=== PATIENT | male | born 1970 | race Caucasian/White ===

== ENCOUNTER 2021-10-04 00:10 | Emergency (ER) | payer OTHER, MEDICARE, MEDICAID, SELFPAY ==
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
[2021-10-04 00:07] VITALS: BP 104/63; PULSE 106; RESP 24; TEMP 36.8; O2SAT 99
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
== END 2021-10-04 01:54 | disposition left against medical advice (07) ==
PROVIDERS: Emergency Provider Emergency Medicine
DX: S50.12XA Contusion of left forearm, initial encounter (principal); M54.2 Cervicalgia; Z87.891 Personal history of nicotine dependence; V49.88XA Car occupant (driver) (passenger) injured in other specified transport accidents, initial encounter; Y92.524 Gas station as the place of occurrence of the external cause
CPT/HCPCS: 72125; 73090; 99284

== ENCOUNTER 2021-10-06 22:27 | Emergency (ER) | payer MEDICARE, MEDICAID, SELFPAY ==
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
--- NOTE | ~2021-10-06 | XR_ITS ---
XR chest 2V DATE: 10/07/2021 00:30 INDICATION: Cough. Episode of hemoptysis. TECHNIQUE: PA and lateral views COMPARISON: None FINDINGS: Mild bilateral hyperinflation. No pulmonary infiltrate or consolidation, pleural effusion o r pulmonary vascular congestion or pneumothorax. Normal heart size. No hilar or mediastinal enlargement. IMPRESSION: Mild bilateral hyperinflation; no active cardiopulmonary disease Reviewed, dictated and finalized at location A.
[2021-10-06 22:29] VITALS: BP 134/88; PULSE 114; RESP 18; TEMP 36.7; O2SAT 98
--- NOTE | 2021-10-06 22:43 | PC.NURSE ---
PATIENT DENIES BLOOD THINNERS AND HAS BEEN SOBER WITH ALCOHOL AND NARCOTICS FOR 22 YEARS
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
[2021-10-07 01:41] LABS: Basophils Absolute Auto 0.1 K/mm3 (0.0-0.1); Basophils Percent Auto 0.6 % (0.2-1.2); Eosinophils Absolute Auto 0.2 K/mm3 (0-0.3); Eosinophils Percent Auto 2.4 % (0-4.4); Hematocrit 41.4 % (42.0-52.0); Hemoglobin 12.8 g/dL (14.0-18.0); Immature Granulocyte Absolute 0.04 K/mm3 (0.00-0.031); Immature Granulocyte Percent A 0.5 % (0-0.5); Lymphocytes Absolute Auto 1.93 K/mm3 (0.9-3.2); Lymphocytes Percent Auto 22.2 % (18.3-44.2); Mean Corpuscular HGB Conc 30.9 g/dl (32-36); Mean Corpuscular Hemoglobin 26.3 pg (26-34); Mean Corpuscular Volume 85.2 fl (80-100); Mean Platelet Volume 9.4 fl (7.4-10.4); Monocytes Absolute Auto 0.8 K/mm3 (0.1-0.6); Monocytes Percent Auto 9.3 % (2.6-8.5); Neutrophils Absolute Auto 5.7 K/mm3 (1.3-6.7); Platelet Count Result 221 k/mm3 (150-375); Red Blood Count 4.86 M/mm3 (4.6-6.20); Red Cell Distribution Width 14.5 % (11.5-14.5); White Blood Count 8.7 K/mm3 (4.5-10.0)
[2021-10-07 02:05] LABS: Anion Gap 7 mmol/L (8-16); Blood Urea Nitrogen 25 mg/dL (9-20); Calcium 9.4 mg/dL (8.4-10.2); Carbon Dioxide 29 mmol/L (22-30); Chloride 100 mmol/L (98-107); Estimated CRCL calculation 76 ml/min; Estimated Glomerular Filt Rate > 60; Glucose 108 mg/dL (65-110); Potassium 3.9 mmol/L (3.4-5.0); Sodium 136 mmol/L (137-145)
[2021-10-07 02:24] LABS: D Dimer 1.82 ug/mL (<0.48)
== END 2021-10-07 01:37 | disposition left against medical advice (07) ==
PROVIDERS: Physician Assistant; Emergency Provider Emergency Medicine
DX: R04.2 Hemoptysis (principal); F31.9 Bipolar disorder, unspecified; Z87.891 Personal history of nicotine dependence; M51.36 Other intervertebral disc degeneration, lumbar region; M51.37 Other intervertebral disc degeneration, lumbosacral region
CPT/HCPCS: 36415; 71046; 72100; 80048; 85025; 85380; 99284